=== PATIENT | male | born 1990 | race Caucasian/White ===

== ENCOUNTER 2019-02-05 14:07 | Day surgery (SDC) | payer MEDICAID ==
[~2019-02-05] VITALS: Ht 175.3 cm; Wt 97.7 kg
[2019-02-05] MEDS ORDERED: fentaNYL/PF 50MCG/1 ML 2ML syringe ONE (14:22)
[2019-02-05] MEDS ORDERED: LIDOcaine Viscous 15ml cup ONE (14:22)
[2019-02-05] MEDS ORDERED: MIDAZolam 5mg/5ml vial ONE ×3 (14:22→19:49)
[2019-02-05 14:24] VITALS: BP 154/89
[2019-02-05 14:52] VITALS: BP 139/85
[2019-02-05 15:02] VITALS: BP 144/82
[2019-02-05 15:12] VITALS: BP 131/64
[2019-02-05] MEDS ORDERED: ASPI-10 PO (15:20)
[2019-02-05] MEDS ORDERED: ACET-2119 PO (15:21)
[2019-02-05 15:22] VITALS: BP 137/71
== END 2019-02-05 15:32 | disposition home or self-care (01) ==
LOC: GI LAB 14:07
PROVIDERS: ATTEND Internal Medicine Gastroenterology
DX: K29.50 Unspecified chronic gastritis without bleeding (principal); K20.8 Other esophagitis; K44.9 Diaphragmatic hernia without obstruction or gangrene
CPT/HCPCS: 43239; 99152; J2250; J3010; J7040; A4620

== ENCOUNTER 2019-02-20 05:46 | Day surgery (SDC) | payer MEDICAID ==
[~2019-02-20] VITALS: Ht 175.3 cm; Wt 97.0 kg
[2019-02-20] VITALS (13 sets, daily range): BP systolic 100–158; BP diastolic 59–98
[~2019-02-20 05:46] MED LIST: ACET-2119 PO; ASPI-10 PO
[2019-02-20] MEDS ORDERED: LIDOcaine 1% (10mg/ml) 2ml vial ONE (05:57)
[2019-02-20] MEDS ORDERED: ringers solution, lacted 1,000 ML IV SCH ×2 (06:00→09:17)
[2019-02-20] MEDS ORDERED: cefazolin/dext.iso 2gm/100 ML IV ONE (06:00)
[2019-02-20] MEDS ORDERED: famotidine 20mg tablet PO ONE (06:00)
[2019-02-20] MEDS ORDERED: PANT-47 PO (06:11)
[2019-02-20 07:01] LABS: BASOPHILS # (AUTO) 0.1 X10'3 (0-0.2); BASOPHILS % (AUTO) 0.5 % (0-1); EOSINOPHILS # (AUTO) 0.2 X10'3 (0-0.9); EOSINOPHILS % (AUTO) 1.6 % (0-6); LYMPHOCYTES # (AUTO) 2.1 X10'3 (1.1-4.8); LYMPHOCYTES % (AUTO) 15.7 % (21-51); MEAN CORPUSCULAR HEMOGLOBIN 29.6 PG (27.0-31.0); MEAN CORPUSCULAR HGB CONC 33.5 g/dL (33.0-36.5); MEAN CORPUSCULAR VOLUME 88.5 FL (78-98); MEAN PLATELET VOLUME 7.8 FL (7.4-10.4); MONOCYTES % (AUTO) 7.2 % (2-12); PRE OP HEMATOCRIT 43.2 % (42.0-52.0); PRE OP HEMOGLOBIN 14.5 g/dL (14.0-17.9); PRE OP PLATELET COUNT 399 X10'3 (140-440); RED BLOOD COUNT 4.88 X10'6 (4.70-6.10); RED CELL DISTRIBUTION WIDTH 14.6 % (11.5-14.5)
[2019-02-20] MEDS ORDERED: methylene blue (5mg/ml) 50mg/10ml ampul IV ONE (07:06)
[2019-02-20] MEDS ORDERED: BUPIVAcaine/PF 2.5 mg/ml (0.25%) 30ml vial ONE (07:08)
[2019-02-20] MEDS ORDERED: BUPIVACAINE liposomal/PF 13.3 MG/ML vial IM ONE (07:09)
[2019-02-20 07:15] LABS: ALBUMIN 3.7 G/DL (3.4-5.0); ALBUMIN/GLOBULIN RATIO 0.9 (1.1-1.5); ALKALINE PHOSPHATASE 127 IU/L (46-116); BLOOD UREA NITROGEN 10 MG/DL (7-18); BUN/CREATININE RATIO 11.4 (5.4-32.0); CALCIUM 8.9 MG/DL (8.5-10.1); CHLORIDE 106 MMOL/L (99-107); CREATININE 0.88 MG/DL (0.60-1.10); PRE OP ALT 32 U/L (30-65); PRE OP ANION GAP 11 (8-16); PRE OP AST 16 U/L (10-37); PRE OP BILIRUB, TOTAL 0.6 MG/DL (0.0-1.0); PRE OP GLUCOSE 92 MG/DL (70-104); PRE OP POTASSIUM 3.6 MMOL/L (3.4-5.1); PRE OP SODIUM 141 MMOL/L (135-145); TOTAL CARBON DIOXIDE 23.6 MMOL/L (24-32); TOTAL PROTEIN 7.8 G/DL (6.4-8.2); eGFR > 90 ML/MIN
[2019-02-20] MEDS ORDERED: ondansetron/PF 4mg/2ml inj ONE (08:26)
[2019-02-20] MEDS ORDERED: sevoflurane 250ml liquid IH ONE (08:26)
[2019-02-20] MEDS ORDERED: dexamethasone sod phosphate 10mg/ml inj ONE (08:26)
[2019-02-20] MEDS ORDERED: midazolam 2 mg/2 ml injection ONE (08:27)
[2019-02-20] MEDS ORDERED: fentaNYL/PF 50MCG/1 ML 2ML syringe ONE ×2 (08:27→08:39)
[2019-02-20] MEDS ORDERED: LIDOcaine 1%/PF 5ML 10 MG/ML VIAL ONE (08:29)
[2019-02-20] MEDS ORDERED: propofol inj 20 ML IV ONE (08:29)
[2019-02-20] MEDS ORDERED: proCHLORperazine 10 MG/2 ml inj IV PRN (09:20)
[2019-02-20] MEDS ORDERED: morphine 4 MG/ML inj SYRINge IV PRN ×2 (09:20)
[2019-02-20] MEDS ORDERED: meperidine/PF 25mg/ml syringe IV PRN ×3 (09:20)
[2019-02-20] MEDS ORDERED: ondansetron/PF 4mg/2ml inj IV PRN (09:20)
--- NOTE | 2019-02-20 09:23 | NUR ---
Received from OR via [facility], accompanied by Anesthesiologist DR ALEJANDRO, and report given by Anesthesiologist. PT VERY DROWSY, NO S/S OF DISTRESS/DISCOMFORT, BUTTOCKS W/FOAM TAPE COVERING INCISION W/PACKING CDI. Addendum: 02/20/19 at 0943 by Kendra Hdz RN Amended: Links added.
--- NOTE | 2019-02-20 11:23 | NUR ---
D'C INSTRUCTIONS GIVEN AND GONE OVER W/PT AND PTS MOTHER, BOTH VERBALIZE UNDERSTANDING, PT D/CD TO HOME VIA W/C TO PRIVATE VEHICLE W/O INCIDENT. Addendum: 02/20/19 at 1135 by Kendra Hdz RN Amended: Links added.
== END 2019-02-20 11:23 | disposition home or self-care (01) ==
LOC: PAS 05:46
PROVIDERS: ATTEND Surgery
DX: K61.0 Anal abscess (principal); L72.8 Other follicular cysts of the skin and subcutaneous tissue; I10 Essential (primary) hypertension; E66.9 Obesity, unspecified; Z68.31 Body mass index [BMI] 31.0-31.9, adult; Z87.891 Personal history of nicotine dependence; Z79.899 Other long term (current) drug therapy
CPT/HCPCS: 36415; 46922; 80053; 82948; 85025; 93005; A6224; A6266; C9290; J1100; J2001; J2175; J2250; J2405; J2704; J3010; J3490; Q9968; A4215; A4618; A6449; A7000; J7120

== ENCOUNTER 2019-02-22 11:29 | Outpatient (CLI) | payer MEDICAID ==
[~2019-02-22 11:29] MED LIST changes: +PANT-47 PO
[2019-02-22] MEDS ORDERED: LIDOcaine 2% 5ml jelly ONE (12:09)
== END 2019-02-22 12:53 | disposition home or self-care (01) ==
LOC: WOUND CARE 11:29 → EDSTATUS 11:30 → WOUND CARE 12:53
PROVIDERS: ATTEND Surgery
DX: T81.89XA Other complications of procedures, not elsewhere classified, initial encounter (principal); L98.492 Non-pressure chronic ulcer of skin of other sites with fat layer exposed; I10 Essential (primary) hypertension; K29.50 Unspecified chronic gastritis without bleeding; Z87.891 Personal history of nicotine dependence; Y83.8 Other surgical procedures as the cause of abnormal reaction of the patient, or of later complication, without mention of misadventure at the time of the procedure
CPT/HCPCS: A6266; G0463; A4663

== ENCOUNTER 2019-02-27 09:16 | Day surgery (SDC) | payer MEDICAID | END 2019-02-27 11:10 | disposition home or self-care (01) | LOC: WOUND CARE 09:16 | PROVIDERS: ATTEND Surgery | DX: T81.89XD Other complications of procedures, not elsewhere classified, subsequent encounter (principal); L98.492 Non-pressure chronic ulcer of skin of other sites with fat layer exposed; I10 Essential (primary) hypertension; K29.50 Unspecified chronic gastritis without bleeding; E66.9 Obesity, unspecified; Z87.891 Personal history of nicotine dependence; Z68.31 Body mass index [BMI] 31.0-31.9, adult; Z79.899 Other long term (current) drug therapy; Y83.8 Other surgical procedures as the cause of abnormal reaction of the patient, or of later complication, without mention of misadventure at the time of the procedure | CPT/HCPCS: A4663; A6021; G0463 ==

== ENCOUNTER 2019-03-05 09:46 | Day surgery (SDC) | payer MEDICAID ==
[2019-03-05] MEDS ORDERED: LIDOcaine 2% 5ml jelly ONE (11:28)
== END 2019-03-05 12:05 | disposition home or self-care (01) ==
LOC: WOUND CARE 09:46
PROVIDERS: ATTEND Surgery
DX: T81.89XD Other complications of procedures, not elsewhere classified, subsequent encounter (principal); L98.492 Non-pressure chronic ulcer of skin of other sites with fat layer exposed; I10 Essential (primary) hypertension; K29.50 Unspecified chronic gastritis without bleeding; E66.9 Obesity, unspecified; Z87.891 Personal history of nicotine dependence; Z68.31 Body mass index [BMI] 31.0-31.9, adult; Z79.899 Other long term (current) drug therapy; Y83.8 Other surgical procedures as the cause of abnormal reaction of the patient, or of later complication, without mention of misadventure at the time of the procedure
CPT/HCPCS: 97597; A4663; A6021

== ENCOUNTER 2019-03-12 09:30 | Day surgery (SDC) | payer MEDICAID ==
[2019-03-12] MEDS ORDERED: LIDOcaine 2% 5ml jelly ONE (09:51)
== END 2019-03-12 11:22 | disposition home or self-care (01) ==
LOC: WOUND CARE 09:30
PROVIDERS: ATTEND Surgery
DX: T81.89XD Other complications of procedures, not elsewhere classified, subsequent encounter (principal); L98.492 Non-pressure chronic ulcer of skin of other sites with fat layer exposed; I10 Essential (primary) hypertension; K29.50 Unspecified chronic gastritis without bleeding; E66.9 Obesity, unspecified; Z87.891 Personal history of nicotine dependence; Z68.31 Body mass index [BMI] 31.0-31.9, adult; Z79.899 Other long term (current) drug therapy; Y83.8 Other surgical procedures as the cause of abnormal reaction of the patient, or of later complication, without mention of misadventure at the time of the procedure
CPT/HCPCS: 97597; A4663; A6021

== ENCOUNTER 2019-03-23 09:25 | Day surgery (SDC) | payer MEDICAID ==
[2019-03-23] MEDS ORDERED: LIDOcaine 2% 5ml jelly ONE (10:58)
== END 2019-03-23 11:35 | disposition home or self-care (01) ==
LOC: WOUND CARE 09:25
PROVIDERS: ATTEND Surgery
DX: T81.89XD Other complications of procedures, not elsewhere classified, subsequent encounter (principal); L98.492 Non-pressure chronic ulcer of skin of other sites with fat layer exposed; I10 Essential (primary) hypertension; K29.50 Unspecified chronic gastritis without bleeding; E66.9 Obesity, unspecified; Z87.891 Personal history of nicotine dependence; Z68.31 Body mass index [BMI] 31.0-31.9, adult; Z79.899 Other long term (current) drug therapy; Y83.8 Other surgical procedures as the cause of abnormal reaction of the patient, or of later complication, without mention of misadventure at the time of the procedure
CPT/HCPCS: 97597; A4663